=== PATIENT | female | born 1990 | race Caucasian/White ===

== ENCOUNTER 2018-03-27 12:11 | Outpatient (CLI) | END 2018-03-27 17:55 | disposition home or self-care (01) ==

== ENCOUNTER 2018-05-30 15:02 | Outpatient (CLI) | payer OTHER ==
[~2018-05-30] VITALS: Ht 162.6 cm; Wt 121.6 kg
[~2018-05-30 15:02] MED LIST: FOLI-49 PO; PNV11TAB PO
[2018-05-30 15:38] VITALS: Ht 162.6 cm; Wt 121.6 kg
[2018-05-30 15:39] VITALS: BP 115/61; PULSE 85; RESP 20
--- NOTE | 2018-05-30 17:15 | HP ---
Date/Time of Note Date/Time of Note DATE: 05/30/18 TIME: 17:13 OB - History Hx of Present Free Text/Dictation @38+6 wks GA : 1 Para: 0 Care: Good Care Ultrasounds: Normal mid trimester US Obstetrical Complications: Gestational Hypertension Medical Complications: None Past Family/Social History * Past Medical, Surgical, Family and Obstetric Histories reviewed from chart. OB Admission Exam Vital Signs Vital Signs Vital Signs Date Temp Pulse Resp B/P (MAP) Pulse Ox O2 O2 Flow FiO2 Time Delivery Rate 05/30/18 98.0 85 20 115/61 Room Air 15:39 (79) Physical Exam Extremities: Normal Cervical Dilatation: 1cm Effacement: 50% Station: -1 Membranes: Intact Heart Rate: 140's Accelerations: Accelerations Present Decelerations: No Decelerations Varibility: Moderate Contractions on Admission: >10 Minutes Apart OB Assessment/Plan Reason for admission: observation Plan: Expectant Management Other plan: D/w ,patient is admitted She is planned to be induced at 39 wks KEVIN GUAN M.D. May 30, 2018 17:15
--- NOTE | 2018-05-30 18:01 | TRIAGE ---
OB Triage Datetime Report Generated by CPN: 05/30/2018 18:01 Datetime: 05/30/2018 15:29 Time of Arrival: 05/30/2018 14:55 EGA: 38.6 Arrived By: Ambulatory Arrived From: Home Chief Complaint: ABD PAIN Movement: Present Rupture of Membranes: Denies Vaginal Bleeding: None Vaginal Discharge: Denies Recent Sexual Intercouse: Denies Abdominal Trauma: Not Applicable Patient Complaints: Contractions Time Provider Notified: 05/30/2018 17:00 Provider Notified: DR SHAH Initial Plan: EFM,CALL DR SHAH Datetime: 05/30/2018 15:28 Maternal Assessment Level of Consciousness: Fully Conscious DTR's/Clonus: DTRs 2+; No Clonus Headache: Denies Blurred Vision: No Respiratory Effort: Unlabored; Regular Rhythm; Equal Expansion Breath Sounds, Left: Clear and Equal Breath Sounds, Right: Clear and Equal Nausea/Vomiting: Denies RUQ Epigastric Pain: Denies Facial Edema: None Temperature Route: Axillary Fall Risk Assessment History of Falling: (0) No Secondary Diagnosis: (0) No Ambulatory Aid: (0) Bedrest/Nurse Assist IV Therapy: (0) No Gait: (0) Normal/Bedrest/Immobile Mental Status: (0) Oriented to Own Ability Fall Score: 0 Fall Risk Score Definition: No Risk: No action required Datetime: 05/30/2018 15:27 Maternal Assessment Level of Consciousness: Fully Conscious DTR's/Clonus: DTRs 2+ Headache: Denies Blurred Vision: No Nausea/Vomiting: Denies RUQ Epigastric Pain: Denies Facial Edema: None Labor Evaluation Frequency: Q 20 AT HOME Monitor Mode: External Quality: Mild Pattern: Normal: <= 5 Contractions in 10 Minutes Resting Tone [place]: Relaxed Heart Rate FHR Baseline Rate: 130 Monitor Mode: External US FHR Baseline Changes: No Baseline Change Variability: Moderate 6-25 bpm Accelerations: 10X10 Decelerations: None Category: Category I Pain Assessment Pain Scale: 7 Pain Presence: Intermittent Pain Type: Contraction Pain Location: Abdomen Pain Goal: 5 Vaginal Exam Membrane Status: Intact Datetime: 03/27/2018 12:39 EGA: 29.5 Datetime: 03/27/2018 12:37 Fall Score: 0 Fall Risk Score Definition: No Risk: No action required
== END 2018-05-30 17:45 | disposition home or self-care (01) ==
LOC: OBT 15:02 → L-D 15:05 → OBT 17:45
PROVIDERS: ATTEND Obstetrics & Gynecology
DX: O13.3 Gestational [pregnancy-induced] hypertension without significant proteinuria, third trimester (principal); Z3A.38 38 weeks gestation of pregnancy
CPT/HCPCS: G0463